=== PATIENT | female | born 1985 | race Caucasian/White ===

== ENCOUNTER 2016-10-28 09:51 | Outpatient (CLI) | payer MEDICAID, OTHER ==
[~2016-10-28] VITALS: Ht 170.2 cm; Wt 66.5 kg
[~2016-10-28 09:51] MED LIST: CPR500T PO; HYDR-3583 PO; PHEN200T27 PO
[2016-10-28 10:05] VITALS: BP 104/61
== END 2016-10-28 10:25 | disposition home or self-care (01) ==
LOC: PREOP 09:51
PROVIDERS: ATTEND Obstetrics & Gynecology
DX: Z01.818 Encounter for other preprocedural examination (principal); Z11.2 Encounter for screening for other bacterial diseases; N90.60 Unspecified hypertrophy of vulva; B19.20 Unspecified viral hepatitis C without hepatic coma
CPT/HCPCS: 87081

== ENCOUNTER 2016-11-04 08:18 | Day surgery (SDC) | payer MEDICAID, OTHER ==
[~2016-11-04] VITALS: Ht 170.2 cm; Wt 66.5 kg
[2016-11-04 08:18] VITALS: BP 104/64
[2016-11-04] MEDS ORDERED: NS (IVPB) 50 ML ONE (08:45)
[2016-11-04] MEDS ORDERED: MIDAZOLAM 2 MG/2 ML (VERSED) VIAL IV ONE (08:45)
[2016-11-04] MEDS ORDERED: ceFAZolin 1,000 MG (ANCEF) VIAL ONE (08:45)
[2016-11-04] MEDS ORDERED: ceFAZolin 1 GM/NS 50 ML IVPB IV ONE ×2 (09:00)
[2016-11-04] MEDS ORDERED: CATHETER FLUSH 10 ML SYR IV PRN (09:00)
[2016-11-04] MEDS ORDERED: fentaNYL INJECTION 100 MCG/2 ML AMP IVP ONE (09:00)
[2016-11-04] MEDS ORDERED: DEXAMETHASONE PF 10 MG/ML (DECADRON) VIAL ONE (09:01)
[2016-11-04] MEDS ORDERED: fentaNYL INJECTION 100 MCG/2 ML AMP ONE ×2 (09:01→16:41)
[2016-11-04] MEDS ORDERED: SEVOFLURANE (ULTANE) 15 ML INHAL SOLN ONE ×7 (09:01→18:22)
[2016-11-04] MEDS ORDERED: LIDOCAINE PF 2% 5 ML (XYLOCAINE) VIAL ONE ×2 (09:01→16:41)
[2016-11-04] MEDS ORDERED: proPOfol 200 MG/20 ML (DIPRIVAN) VIAL IV ONE ×2 (09:01→16:41)
[2016-11-04] MEDS ORDERED: LACTATED RINGERS 1,000 ML IV ONE ×4 (09:01→18:08)
[2016-11-04] MEDS ORDERED: HURRICAINE EXT TUBE (BENZOCAINE) ONE (09:01)
[2016-11-04] MEDS ORDERED: MIDAZOLAM 2 MG/2 ML (VERSED) VIAL ONE ×2 (09:01→16:41)
[2016-11-04] MEDS: LACTATED RINGERS 1,000 ML IV PRN ×2 (09:10→10:14)
[2016-11-04] MEDS ORDERED: BUP/EPI 0.5% 1:200,000 (MARCAINE) 10ML VIAL IJ ONE (09:29)
--- NOTE | 2016-11-04 09:46 | Progress Note-Pre Operative ---
Pre-Operative Progress Note H&P Reviewed The H&P was reviewed, patient examined and no changes noted. Date Seen by Provider: Nov 04, 2016 Time Seen by Provider: 09:40 Date H&P Reviewed: Nov 04, 2016 Time H&P Reviewed: 09:40 Pre-Operative Diagnosis: Labial hypertrophy PAULA RICO DO Nov 04, 2016 09:46
[2016-11-04] MEDS ORDERED: D5 LR IV SOLUTION 1,000 ML IV SCH (10:43)
[2016-11-04] MEDS ORDERED: ONDANSETRON 4 MG/2 ML (SDV) Z0FRAN IVP PRN ×2 (10:45→18:45)
[2016-11-04] MEDS ORDERED: KETOROLAC 30 MG/ML VIAL IVP ONE ×2 (10:45→18:45)
[2016-11-04] MEDS ORDERED: HYDR-757 PO (10:49)
[2016-11-04] MEDS ORDERED: IBUP-1773 PO (10:49)
--- NOTE | 2016-11-04 10:51 | Discharge Inst-Women's Service ---
Discharge Inst-Women's Serv Depart Medication/Instructions New, Converted or Re-Newed RX: RX on Chart Instructions Keep the area clean and dry, avoid strenuous activity, wear loose clothing, and protect the vulvar area from friction for 7 to 14 days. Ice pack to perineum for 20 minutes every 3-4 hour for 24 hours and then prn. ( avoid falling asleep with ice in place due to risk of burn) Final Diagnosis symptomatic labial hypertrophy Consults/Follow Up Additional Follow Up: Yes ([address] Cash) Activity Activity: Activity as Tolerated (see above) Driving Instructions: No Driving for 24 Hours NO SMOKING: NO SMOKING Nothing Inside Vagina: No Douching, No [place], No Tampons Diet Discharge Diet: No Restrictions Symptoms to Report to : Swelling Increased, Bleeding Excessive, Fever Over 101 Degrees F, Vaginal Bleeding Increase, Vaginal Discharge Foul For Any Problems or Questions: Contact Your Physician Skin/Wound Care Infection Signs and Symptoms: Increased Redness, Foul Odor of Wound, Increased Drainage, Skin Itchy or Has a Rash, Increased Swelling, Temperature Above 101 F Stitches/[place]/Dermabond: Care of Stitches Bathing Instructions: PAULA Mohamud DO Nov 04, 2016 10:51
[2016-11-04] MEDS ORDERED: morphine INJ 10 MG/ML 1ML (SYR OR VIAL) ONE ×2 (10:59→18:29)
[2016-11-04] MEDS: morphine INJ 10 MG/ML 1ML (SYR OR VIAL) IVP PRN ×3 (11:07→11:22)
[2016-11-04 11:45] VITALS: BP 102/66
[2016-11-04 12:15] VITALS: BP 110/77
[2016-11-04 12:45] VITALS: BP 110/69
[2016-11-04 13:26] VITALS: BP 110/69
[2016-11-04] MEDS ORDERED: ONDANSETRON 4 MG/2 ML (SDV) Z0FRAN ONE (16:41)
[2016-11-04] MEDS ORDERED: KETOROLAC 30 MG/ML VIAL IVP PRN (18:45)
[2016-11-04] MEDS ORDERED: HYDROmorphone (DILAUDID) 2 MG/ML VIAL IVP PRN (18:45)
--- NOTE | 2016-12-04 14:20 | Operative Report ---
Operative Report Date of Procedure/Surgery Dec 05, 2016 Surgeon (s) PAULA RICO DO Sewing Machine Tester (s): none needed Post-Operative Diagnosis labial hypertrophy and assymetry Procedure Performed bilateral labial reduction/labiaplasty Description of Procedure Estimated blood loss (mL): 50 Specimen(s) collected/removed none Description of the Procedure With informed consent, the patient was taken to the operating room where general anesthesia was found to be adequate. She was prepped and draped in usual sterile fashion in the dorsolithotomy position. A Rubin catheter was placed under sterile condition. The above mentioned findings were seen. The goal is to decrease the size and length of the labia and make them flush with the labia majora bilaterally, and make them even. The labia were grasped bilaterally with Allis clamps and a making was made on each labia in a diagonal fashion anteriorly to posteriorly. I then injected the skin with Marcaine 0.5% with epinephrine and then incised with a knife. I then closed the subcutaneous tissue with interrupted stitches of 3-0 Vicryl and then closed the skin with a running stitch of 3-0 Vicryl. There was good hemostasis. the patient tolerated the procedure well and was taken to the recovery room in a stable condition. The Rubin catheter was removed and ice pack was placed. Findings of the Procedure The patient has elongated labia minora. The left is much larger/longer than the right but both extend beyond the labia majora at least 4 cm. The left extend beyond 5 cm and then hangs much lower on the left. 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 Allergies and Home Medications Allergies Coded Allergies: No Known Drug Allergies (Unverified , 11/04/16) Home Medications Hydrocodone/Acetaminophen 1 Each Tablet, 1 EACH PO Q4H, #12 Prescribed by: PAULA RICO on 11/04/16 1049 Ibuprofen 600 Mg Tablet, 600 MG PO Q6H PRN for PAIN, #40 Prescribed by: PAULA RICO on 11/04/16 1049 PAULA RICO DO Dec 04, 2016 14:20
== END 2016-11-04 09:40 | disposition home or self-care (01) ==
LOC: SDC 08:18
PROVIDERS: ATTEND Obstetrics & Gynecology
DX: N90.60 Unspecified hypertrophy of vulva (principal); B19.20 Unspecified viral hepatitis C without hepatic coma; F17.210 Nicotine dependence, cigarettes, uncomplicated
CPT/HCPCS: 80306; 94664

== ENCOUNTER 2016-11-04 17:11 | Day surgery (SDC) | payer SELFPAY ==
[~2016-11-04] VITALS: Ht 170.2 cm; Wt 66.5 kg
[2016-11-04] MEDS: HYDROcodone/APAP 5 MG/325 MG (LORTAB) TAB PO PRN (00:15)
[2016-11-04 16:47] VITALS: BP 107/64
--- NOTE | 2016-11-04 17:04 | Progress Note-Standard ---
Standard Progress Note Progress Notes/Assess & Plan Date Seen by Provider: Nov 04, 2016 Time Seen by Provider: 16:15 Progress/Assessment & Plan Patient had bilateral labioplasty today that was uncomplicated. she had an uncomplicated postoperative course. She had no vaginal bleeding prior to discharge. She left the hospital and on the way home to [place], began having bleeding enough to soak a pap. She also has note decreased swelling, bruising and pain. She returned to the office for exam. The labia are bruised bilaterally, though the left is greater than the right. The area at the superior portion of the incision on the left labia minora is opened as though a suture has pulled or popped. The rest is in tact. Ther is no acute bleeding Plan is to return to surgery for exam under anesthesia and, if there is active bleeding, to repair this. risks include increased bleeding, injury to labia and surrounding organs. Infection. Consent has been signed PAULA RICO DO Nov 04, 2016 17:04
[~2016-11-04 17:11] MED LIST changes: +HYDR-757 PO; +IBUP-1773 PO; +ceFAZolin 1,000 MG (ANCEF) VIAL IV ONE
[2016-11-04] MEDS: LACTATED RINGERS 1,000 ML IV SCH ×2 (17:22→18:14)
[2016-11-04] MEDS ORDERED: ONDANSETRON 4 MG/2 ML (SDV) Z0FRAN IVP PRN ×2 (18:00→20:15)
[2016-11-04] MEDS ORDERED: MEPERIDINE (DEMEROL) INJ 50 MG/ML IVP PRN (18:00)
[2016-11-04] MEDS ORDERED: KETOROLAC 30 MG/ML VIAL ONE (18:18)
--- NOTE | 2016-11-04 18:34 | Operative Report ---
Operative Report Date of Procedure/Surgery Nov 04, 2016 Surgeon (s) PAULA RICO DO Wreath Machine Tender (s): na Post-Operative Diagnosis post operative bleeding Procedure Performed revision of labioplasty, exam under anesthesia Description of Procedure Anesthesia Type: General Estimated blood loss (mL): 25 ml Specimen(s) collected/removed none Description of the Procedure The patient was teken to the operating room where general anesthesia was found to be adequate. She was prepped and draped in the usual sterile fashion in the dorsolithotomy position. A real catheter was placed under sterile condition. There was blood on the vulva and the perineum and on the pad. The sutures were cut and removed. There was no obvious bleeding noted, but there was some oozing. The interrupted sutures in the subcutaneous layer were removed as well. I cauterized this area and then copiously irrigated to remove any blood clot that was present. After the bleeding was controlled. I placed interrupted 3-0 Vicryl in the subcutaneous layer and then closed the skin with interrupted 4-0 Monocryl the patient tolerated the procedure well and was taken to the recover room in stable condition. Findings of the Procedure There was excessive bruising and inflammation bilaterally, but the left was 2 x greater than the right. There was some oozing through the incision on the left. Allergies and Home Medications Allergies Coded Allergies: No Known Drug Allergies (Unverified , 11/04/16) Home Medications Hydrocodone/Acetaminophen 1 Each Tablet, 1 EACH PO Q4H, #12 Prescribed by: PAULA RICO on 11/04/16 1049 Ibuprofen 600 Mg Tablet, 600 MG PO Q6H PRN for PAIN, #40 Prescribed by: PAULA RICO on 11/04/16 1049 PAULA RICO DO Nov 04, 2016 18:34
[2016-11-04] MEDS: morphine INJ 10 MG/ML 1ML (SYR OR VIAL) IVP PRN ×3 (18:55→19:07)
[2016-11-04 19:45] VITALS: BP 118/81
[2016-11-04 20:15] VITALS: BP 118/74
[2016-11-04] MEDS ORDERED: HYDROmorphone (DILAUDID) 2 MG/ML VIAL IVP PRN (20:15)
[2016-11-04] MEDS: KETOROLAC 30 MG/ML VIAL IVP PRN (20:26)
[2016-11-04] MEDS ORDERED: CATHETER FLUSH 10 ML SYR IV PRN (20:30)
[2016-11-04] MEDS ORDERED: CALCIUM CARBONATE 500 MG (TUMS) TAB.CHEW PO PRN (22:15)
[2016-11-05 00:15] VITALS: BP 102/68
[2016-11-05] MEDS: KETOROLAC 30 MG/ML VIAL IVP PRN (01:53)
[2016-11-05] MEDS: LACTATED RINGERS 1,000 ML IV SCH (03:10)
[2016-11-05 04:30] VITALS: BP 83/54
[2016-11-05] MEDS: HYDROcodone/APAP 5 MG/325 MG (LORTAB) TAB PO PRN (04:48)
[2016-11-05 07:55] VITALS: BP 111/66
--- NOTE | 2016-11-05 09:29 | Anesthesia-General Post-Op ---
General Patient Condition Mental Status/LOC: Same as Preop Cardiovascular: Satisfactory Nausea/Vomiting: Absent Respiratory: Satisfactory Pain: Controlled Complications: Absent Post Op Complications Complications None Follow Up Care/Instructions Patient Instructions None needed. Anesthesia/Patient Condition Patient Condition Patient is doing well, no complaints, stable vital signs, no apparent adverse anesthesia problems. No complications reported per nursing. SAMUEL SOTO CRNA Nov 05, 2016 09:29
--- NOTE | 2016-12-08 08:33 | Short Stay Summary ---
History of Present Illness History of Present Illness Reason for visit/HPI See previous history and physical and admission note. Patient had labial reduction for labial hypertrophy on 11/04/16. This was uncomplicated. She was discharged to home. She called later in the day complaining of increased bleeding (there had been none) and increased pain. she was asked to return to the hospital. She was examined and found to have a hematoma and was taken to the operating room to examine under anesthesia and remove hematoma from the left labia minora. This was done without difficulty and revised. The patient was admitted to women's services after the procedure and for pain control. The Rubin catheter was left in overnight. Ice was placed to the perineum as well. This am the Rubin catheter was removed. The bruising is improved and is not spreading and the bleeding is minimal to none. She is discharged to home. Date of Admission 11/04/16 Date of Discharge 11/05/16 Time Seen by Provider: 08:36 Attending Physician Paula Rico DO Admitting Physician No,Local Physician Consult Allergies and Home Medications Allergies Coded Allergies: No Known Drug Allergies (Unverified , 11/04/16) Home Medications Hydrocodone/Acetaminophen 1 Each Tablet, 1 EACH PO Q4H, #12 Prescribed by: PAULA RICO on 11/04/16 1049 Ibuprofen 600 Mg Tablet, 600 MG PO Q6H PRN for PAIN, #40 Prescribed by: PAULA RICO on 11/04/16 1049 Past Ienscjl-Mmappe-Uyqwpb Hx Patient Social History Marrital Status: single Number of Children: 2 Smoking Status: Current Everyday Smoker Type Used: Cigarettes Recent Foreign Travel: No Contact w/other who traveled: No Recent Hopitalizations: No Recent Infectious Disease Expo: No Seasonal Allergies Seasonal Allergies: No Surgeries Hysterectomy Reproductive System Hx Reproductive Disorders: No Sexually Transmitted Disease: No 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 Gastrointestinal Chronic Constipation, Hepatitis HEENT Loss of Vision: Denies Hearing Impairment: Denies Blood Transfusions Adverse Reaction to a Blood Tr: No (N/A) Constitutional: no symptoms reported, see HPI Physical Exam Vital Signs Capillary Refill : General Appearance: No Apparent Distress, WD/WN Respiratory: Chest Non Tender, Lungs Clear, Normal Breath Sounds Cardiovascular: Regular Rate, Rhythm Genital/Rectal: Other (see above) Short Stay Diagnosis Discharge Diagnosis-Short Stay Final Discharge Diagnosis: postoperative bleeding and hematoma Conclusion Conclusion/Plan discharged to home, stable after revision. See above for complete information. PAULA RICO DO Dec 08, 2016 08:33
== END 2016-11-05 09:40 | disposition home or self-care (01) ==
LOC: UNDOADMIN 17:11 → LDRP 17:11 → WSo 17:11 → LDRP 17:11 → UNDODISIN 11-05 09:40 → WSo 11-05 09:40
PROVIDERS: ATTEND Obstetrics & Gynecology
DX: N99.820 Postprocedural hemorrhage of a genitourinary system organ or structure following a genitourinary system procedure (principal); B19.20 Unspecified viral hepatitis C without hepatic coma; F17.210 Nicotine dependence, cigarettes, uncomplicated
CPT/HCPCS: 96361; 96375; 96376

== ENCOUNTER 2017-04-18 10:20 | Emergency (ER) | payer SELFPAY ==
[~2017-04-18] VITALS: Ht 167.6 cm; Wt 57.2 kg
[~2017-04-18 10:20] MED LIST changes: -ceFAZolin 1,000 MG (ANCEF) VIAL IV ONE
[2017-04-18 10:58] LABS: BILIRUBIN,URINE NEGATIVE (NEGATIVE); CLARITY,URINE VERY CLOUDY; COLOR,URINE AMBER; GLUCOSE, URINE (UA) NEGATIVE (NEGATIVE); KETONES,URINE 1+ (NEGATIVE); LEUKOCYTE ESTERASE ,URINE 3+ (NEGATIVE); NITRITE,URINE NEGATIVE (NEGATIVE); PH,URINE 8 (5-9); PROTEIN,URINE 3+ (NEGATIVE); UROBILINOGEN,URINE 8 MG/DL (NORMAL)
[2017-04-18 11:08] LABS: BACTERIA,URINE MODERATE /HPF; RBC,URINE >100 /HPF; WBC,URINE TNTC /HPF
[2017-04-18] MEDS ORDERED: SULF1TAB35 PO (11:15)
[2017-04-18] MEDS ORDERED: PHEN-639 PO (11:16)
--- NOTE | 2017-04-18 11:16 | ED GU-Female ---
General Chief Complaint: -Female Stated Complaint: CANT URINATE, PAIN Source: patient Exam Limitations: no limitations History of Present Illness Date Seen by Provider: Apr 18, 2017 Time Seen by Provider: 11:13 Initial Comments To ER with reports of difficult to urinating, burning upon urination intermittent nausea for 4 days. She has flank pain bilaterally. No fevers. Timing/Duration: constant Severity/Quality: moderate Prior Genitourinary Problems: none Associated Symptoms: dysuria Allergies and Home Medications Allergies Coded Allergies: No Known Drug Allergies (Unverified , 11/04/16) Home Medications Hydrocodone/Acetaminophen 1 Each Tablet, 1 EACH PO Q4H, #12 Prescribed by: PAULA RICO on 11/04/16 1049 Ibuprofen 600 Mg Tablet, 600 MG PO Q6H PRN for PAIN, #40 Prescribed by: PAULA RICO on 11/04/16 1049 Constitutional: see HPI, chills EENTM: see HPI Respiratory: no symptoms reported Cardiovascular: no symptoms reported Genitourinary: no symptoms reported Musculoskeletal: no symptoms reported Skin: no symptoms reported Psychiatric/Neurological: No Symptoms Reported Endocrine: No Symptoms Reported Past Hgpgndw-Yrbcpy-Tsrfka Hx Patient Social History Type Used: Cigarettes Recent Foreign Travel: No Contact w/Someone Who Travel: No Recent Hopitalizations: No Seasonal Allergies Seasonal Allergies: No Surgeries Surgeries: Hysterectomy Reproductive System Hx Reproductive Disorders: No Sexually Transmitted Disease: No 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 Gastrointestinal Gastrointestinal Disorders: Chronic Constipation, Hepatitis HEENT Loss of Vision: Denies Hearing Impairment: Denies Blood Transfusions Adverse Reaction to a Blood Tr: No (N/A) Physical Exam Vital Signs Capillary Refill : General Appearance: WD/WN, no apparent distress HEENT: PERRL/EOMI, normal ENT inspection Neck: non-tender, full range of motion Respiratory: normal breath sounds, no respiratory distress, no accessory muscle use Gastrointestinal: normal bowel sounds, non tender Back: CVA tenderness (R), CVA tenderness (L) Neurologic/Psychiatric: alert, normal mood/affect, oriented x 3 Skin: normal color, warm/dry Progress/Results/Core Measures Suspected Sepsis SIRS Temperature: Pulse: Respiratory Rate: Blood Pressure / Mean: Results/Orders Lab Results Laboratory Tests Test 04/18/17 10:49 Range/Units Urine Color BETH H Urine Clarity VERY CLOUDY H Urine pH 8 5-9 Urine Specific [place] 1.010 L 1.016-1.022 Urine Protein 3+ H NEGATIVE Urine Glucose (UA) NEGATIVE NEGATIVE Urine Ketones 1+ H NEGATIVE Urine Nitrite NEGATIVE NEGATIVE Urine Bilirubin NEGATIVE NEGATIVE Urine Urobilinogen 8 H NORMAL MG/DL Urine Leukocyte Esterase 3+ H NEGATIVE Urine RBC (Auto) 5+ H NEGATIVE Urine RBC >100 H /HPF Urine WBC TNTC H /HPF Urine Squamous Epithelial Cells 10-25 H /HPF Urine Crystals NONE /LPF Urine Bacteria MODERATE H /HPF Urine Casts NONE /LPF Urine Mucus NEGATIVE /LPF Urine Culture Indicated YES My Orders Orders - MALACHI FERNANDEZ APRN Ua Culture If Indicated (04/18/17 10:50) Urine Bedside (04/18/17 10:50) Urine Culture (04/18/17 10:49) Vital Signs/I&O Capillary Refill : Point of Care Testing Urine -Bedside: Negative Departure Impression Impression: Primary Impression: Urinary tract infection Disposition: 01 HOME, SELF-CARE Condition: Stable Departure-Patient Inst. Decision time for Depature: 11:15 Referrals: NO,LOCAL PHYSICIAN (PCP/Family) Primary Care Physician Patient Instructions: Urinary Tract Infection, Adult (DC) Add. Discharge Instructions: 1. Drink plenty of fluids 2. Return to ER for any nausea that prohibits you from taking your antibiotics. Follow-up with your doctor within 48 hours for recheck. Start the antibiotics tomorrow morning. Scripts Phenazopyridine HCl (Pyridium) 100 Mg Tablet 100 MG PO TID, #6 TAB Prov: MALACHI FERNANDEZ APRN 04/18/17 Sulfamethoxazole/Trimethoprim (Bactrim Ds Tablet) 1 Each Tablet 1 EACH PO BID, #14 TAB Prov: MALACHI FERNANDEZ APRN 04/18/17 MALACHI FERNANDEZ APRN Apr 18, 2017 11:16
[2017-04-18] MEDS ORDERED: PHENAZOPYRIDINE 100 MG (PYRIDIUM) TABLET PO ONE (11:30)
[2017-04-18] MEDS ORDERED: cefTRIAXone INJECTION 1,000 MG in D5W 50 ML IVPB SOLUTION 50 ML IV ONE (11:30)
[2017-04-18 11:51] LABS: ALANINE AMINOTRANSFERASE 8 U/L (0-55); ALBUMIN 3.9 GM/DL (3.2-4.5); ALKALINE PHOSPHATASE 61 U/L (40-136); BILIRUBIN,TOTAL 0.2 MG/DL (0.1-1.0); BUN/CREATININE RATIO 13; CALCIUM 9.4 MG/DL (8.5-10.1); CARBON DIOXIDE 29 MMOL/L (21-32); CHLORIDE 102 MMOL/L (98-107); GFR ESTIMATED > 60; GLUCOSE 96 MG/DL (70-105); POTASSIUM 3.6 MMOL/L (3.6-5.0); SODIUM 142 MMOL/L (135-145); TOTAL PROTEIN 7.2 GM/DL (6.4-8.2)
[2017-04-18 12:10] LABS: BASOPHILS # (AUTO) 0.1 10^3/uL (0.0-0.1); BASOPHILS % (AUTO) 1 % (0-10); EOSINOPHILS # (AUTO) 0.3 10^3/uL (0.0-0.3); EOSINOPHILS % (AUTO) 3 % (0-10); HEMATOCRIT 40 % (35-52); HEMOGLOBIN 13.6 G/DL (11.5-16.0); LYMPHOCYTES # (AUTO) 1.9 X 10^3 (1.0-4.0); LYMPHOCYTES % (AUTO) 23 % (12-44); MEAN CORPUSCULAR HEMOGLOBIN 30 PG (25-34); MEAN CORPUSCULAR HGB CONC 34 G/DL (32-36); MEAN CORPUSCULAR VOLUME 88 FL (80-99); MEAN PLATELET VOLUME 11.4 FL (7.4-10.4); MONOCYTES # (AUTO) 0.7 X 10^3 (0.0-1.0); MONOCYTES % (AUTO) 9 % (0-12); NEUTROPHILS # (AUTO) 5.1 X 10^3 (1.8-7.8); NEUTROPHILS % (AUTO) 64 % (42-75); PLATELET COUNT 246 10^3/uL (130-400); RED BLOOD COUNT 4.53 10^6/uL (4.35-5.85); RED CELL DISTRIBUTION WIDTH 12.2 % (10.0-14.5); WHITE BLOOD COUNT 7.9 10^3/uL (4.3-11.0)
[2017-04-18 13:08] VITALS: BP 99/64
== END 2017-04-18 12:37 | disposition home or self-care (01) ==
LOC: EDUNIT# 10:20 → ER 10:22
DX: N39.0 Urinary tract infection, site not specified (principal); Z90.710 Acquired absence of both cervix and uterus; Z87.19 Personal history of other diseases of the digestive system
CPT/HCPCS: 36415; 80053; 81000; 84703; 85025; 87088; 87186; 99283